=== PATIENT | male | born 1965 | race Caucasian/White ===

== ENCOUNTER 2020-07-04 12:02 | Observation (INO) ==
[2020-07-04 14:38] LABS: ABS Basophils 0.1 10^3/ul (0-0.2); ABS Eosinophils 0.3 10^3/ul (0-0.6); ABS Lymphocytes 1.2 10^3/ul (1.0-4.8); ABS Monocytes 0.8 10^3/ul (0-0.8); ABS Neutrophils 7.9 10^3/ul (1.5-7.7); Eosinophil % 2.6 %; Hematocrit 32 % (42-52); Hemoglobin 10.7 g/dL (14.0-18.0); Lymphocyte % 11.6 %; Mean Corpuscular HGB Conc 34 g/dL (31-36); Mean Corpuscular Hemoglobin 29 pg (27-31); Mean Corpuscular Volume 85 fL (80-94); Mean Platelet Volume 7.8 fL (7.4-10.4); Nucleated Red Blood Cells % 0.1; Platelet Count 525 10^3/uL (150-450); Red Blood Count 3.72 10^6 /uL (4.18-5.48); Red Cell Distribution Width 17 % (10-15); White Blood Count 10.4 10^3/uL (3.5-10.8)
[2020-07-04] MEDS ORDERED: NS 0.9% 1000 ml BAG 1,000 ML IV ONE ×2 (14:45→18:35)
[2020-07-04 15:04] LABS: ALT 8 U/L (7-52); AST 11 U/L (13-39); Albumin 3.2 g/dL (3.2-5.2); Albumin/Globulin Ratio 0.8 (1-3); Alkaline Phosphatase 190 U/L (35-149); Anion Gap 11 mmol/L (2-11); Blood Urea Nitrogen 69 mg/dL (6-24); C Reactive Protein 129.46 mg/L (<8.01); CO2 Carbon Dioxide 16 mmol/L (22-32); Calcium 9.2 mg/dL (8.6-10.3); Chloride 101 mmol/L (101-111); EGFR Non-African American 14.9 (>60); Globulin 3.9 g/dL (2-4); Glucose 193 mg/dL (70-100); Lipase < 10 U/L (11.0-82.0); Potassium 4.6 mmol/L (3.5-5.0); Sodium 128 mmol/L (135-145); Total Protein 7.1 g/dL (6.4-8.9)
[2020-07-04] MEDS ORDERED: cefTRIAXone 1 gm/50 mL NS BAG 1 GM/50 ML BAG IV ONE (17:25)
[2020-07-04 18:11] LABS: Urine Appearance Cloudy; Urine Bilirubin Negative (Negative); Urine Blood 1+ (Negative); Urine Color Yellow; Urine Glucose 1+(50 mg/dL) (Negative); Urine Ketones Negative (Negative); Urine Nitrite Negative (Negative); Urine Protein 2+(100 mg/dL) (Negative); Urine Urobilinogen Negative (Negative)
[2020-07-04 18:15] LABS: Urine Bacteria Absent (Absent); Urine Red Blood Cell Trace(0-2/hpf) (Absent); Urine White Blood Cell Trace(0-5/hpf) (Absent)
[2020-07-04 18:21] LABS: Phosphorus 5.9 mg/dL (2.5-5.0)
[2020-07-04] MEDS ORDERED: Sodium Bicarbonate 8.4% SYR 50 ml SYRINGE IV ONE (18:51)
[2020-07-04] MEDS ORDERED: Dextrose 50% Syringe 50 ml 25 GM/50 ML SYRINGE IV PUSH PRN (19:37)
[2020-07-04 20:25] LABS: Erythrocyte Sed Rate 111 mm/Hr (0-19)
[2020-07-04] MEDS ORDERED: Insulin GLARGINE 100 un/ml 10 ml VIAL SUBCUT SCH (21:00)
[2020-07-04] MEDS: D5W 1000 ml BAG 1,000 ML IV SCH (22:28)
[2020-07-04] MEDS: Ondansetron 4 mg VIAL 2 MG/ML 2 ml VIAL IV PRN (23:25)
[2020-07-05] MEDS: Aspirin EC 81 mg TAB.EC (enteric coated) PO SCH (08:25)
[2020-07-05 08:32] LABS: ABS Basophils 0.1 10^3/ul (0-0.2); ABS Eosinophils 0.3 10^3/ul (0-0.6); ABS Lymphocytes 1.2 10^3/ul (1.0-4.8); ABS Monocytes 0.7 10^3/ul (0-0.8); ABS Neutrophils 5.4 10^3/ul (1.5-7.7); Eosinophil % 4.1 %; Hematocrit 28 % (42-52); Hemoglobin 9.3 g/dL (14.0-18.0); Lymphocyte % 16.2 %; Mean Corpuscular HGB Conc 33 g/dL (31-36); Mean Corpuscular Hemoglobin 28 pg (27-31); Mean Corpuscular Volume 83 fL (80-94); Mean Platelet Volume 7.7 fL (7.4-10.4); Platelet Count 471 10^3/uL (150-450); Red Blood Count 3.39 10^6 /uL (4.18-5.48); Red Cell Distribution Width 17 % (10-15); White Blood Count 7.7 10^3/uL (3.5-10.8)
[2020-07-05 08:49] LABS: Albumin 2.7 g/dL (3.2-5.2); Anion Gap 10 mmol/L (2-11); CO2 Carbon Dioxide 20 mmol/L (22-32); Calcium 7.9 mg/dL (8.6-10.3); Chloride 103 mmol/L (101-111); Potassium 3.2 mmol/L (3.5-5.0); Sodium 133 mmol/L (135-145)
[2020-07-05 08:55] LABS: ALT 7 U/L (7-52); AST 9 U/L (13-39); Albumin/Globulin Ratio 0.8 (1-3); Alkaline Phosphatase 155 U/L (35-149); Blood Urea Nitrogen 50 mg/dL (6-24); EGFR Non-African American 19.8 (>60); Globulin 3.2 g/dL (2-4); Glucose 144 mg/dL (70-100); Phosphorus 4.4 mg/dL (2.5-5.0); Total Protein 5.9 g/dL (6.4-8.9)
[2020-07-05] MEDS ORDERED: Metoclopramide LIQUID 1 mg/ml 10 ml ORAL.SOLN (10 mg) PO SCH (09:00)
[2020-07-05] MEDS: D5W 1000 ml BAG 1,000 ML IV SCH (13:00)
[2020-07-05] MEDS: NS 0.9% 1000 ml BAG 1,000 ML IV SCH (13:29)
[2020-07-05 15:00] LABS: Ferritin 150.4 ng/mL (24-336)
[2020-07-05 15:17] LABS: Total Iron Binding Capacity 209 mcg/dL (250-450); Transferrin 149 mg/dL (203-362)
[2020-07-05 15:19] LABS: % Iron Saturation 10 % (15-55); Iron < 20 ug/dL (50-212); Unsaturated Iron Binding < 194 ug/dL
[2020-07-05] MEDS ORDERED: Potassium Chlor 20 meq TAB.ER PO ONE (16:23)
[2020-07-05] MEDS ORDERED: Dextrose 50% Syringe 50 ml 25 GM/50 ML SYRINGE IV PUSH PRN (17:11)
[2020-07-05] MEDS: Ondansetron 4 mg VIAL 2 MG/ML 2 ml VIAL IV PRN (20:21)
[2020-07-05] MEDS ORDERED: Nortriptyline 25 mg TAB PO SCH (21:00)
[2020-07-05] MEDS ORDERED: Insulin GLARGINE 100 un/ml 10 ml VIAL SUBCUT SCH (21:00)
[2020-07-06] MEDS: NS 0.9% 1000 ml BAG 1,000 ML IV SCH (01:15)
[2020-07-06 06:21] LABS: Hematocrit 30 % (42-52); Hemoglobin 9.9 g/dL (14.0-18.0); Mean Corpuscular HGB Conc 33 g/dL (31-36); Mean Corpuscular Hemoglobin 28 pg (27-31); Mean Corpuscular Volume 84 fL (80-94); Mean Platelet Volume 7.3 fL (7.4-10.4); Platelet Count 493 10^3/uL (150-450); Red Blood Count 3.53 10^6 /uL (4.18-5.48); Red Cell Distribution Width 17 % (10-15); White Blood Count 7.2 10^3/uL (3.5-10.8)
[2020-07-06 06:26] LABS: INR 1.28 (0.82-1.09)
[2020-07-06 06:40] LABS: Calcium 8.1 mg/dL (8.6-10.3); EGFR African American 28.1 (>60); EGFR Non-African American 23.2 (>60); Potassium 3.6 mmol/L (3.5-5.0)
[2020-07-06] MEDS: Aspirin EC 81 mg TAB.EC (enteric coated) PO SCH (09:18)
[2020-07-06 11:47] VITALS: BP 147/71
[2020-07-10 21:22] LABS: Tissue Transglutaminase IgA Ab <1.2 U/mL
[2020-07-10 22:12] LABS: Immunoglobulin A 379 mg/dL (61 - 356)
== END 2020-07-06 13:35 | disposition home or self-care (01) ==
LOC: ED 12:02 → MED 12:02
PROVIDERS: ADMIT Hospitalist; ATTEND Internal Medicine